=== PATIENT | female | born 1990 | race Caucasian/White ===

== ENCOUNTER → 2025-07-31 | Outpatient (CLI) | payer OTHER, SELFPAY ==
--- NOTE | 2025-07-31 14:45 | XR_ITS ---
Examination: MRI lumbar spine without contrast Date and time of exam: July 31, 2025, 1517 hours INDICATIONS: Twisting ankle injury 06/2025 with lateral ankle pain and instability Technique: Multiple MRI axial and sagittal sections lumbar spine. Sagittal T2-weighted images, TR 3500, TE 118 T1 weighted transverse sections, TR 688 T8.5, T2-weighted sagittal sections T1 weighted sagittal sections TR 621, TE 30 T2 axial sections, TR 4, 190, TE 84. Findings: Intact Achilles tendon Mild plantar fasciitis Moderate ankle effusion Mild sinus Tarsi syndrome Mild marrow edema in the distal fibular shaft coronal image 17 Negative for osteochondral talar defect Anterior posterior inferior tibiofibular ligaments intact Moderate sprain posterior talofibular ligament Prominent tendinitis flexor hallucis longus tendon Extensor tendons intact IMPRESSION: Marrow edema in the distal fibula, recommend correlation with plain films Moderate sprain posterior talofibular ligament Pronounced tendinitis flexor hallucis longus tendon
== END | disposition home or self-care (01) ==
LOC: SMRI 13:58
PROVIDERS: PCP Internal Medicine; Referring Provider Internal Medicine; Visit Provider Internal Medicine
DX: S93.491A Sprain of other ligament of right ankle, initial encounter (principal); X58.XXXA Exposure to other specified factors, initial encounter; M67.873 Other specified disorders of tendon, right ankle and foot
CPT/HCPCS: 73721

== ENCOUNTER → 2025-08-10 | Outpatient (CLI) | payer OTHER, SELFPAY ==
--- NOTE | 2025-08-10 08:55 | XR_ITS ---
Examination: Tibia-Fibula, right, 2 views Technique: Tibia-fibula AP lateral 2 views Date and time of exam: August 10, 2025, 0900 hours INDICATIONS: Running injury 2 months ago with persistent leg pain. FINDINGS: Mild osteopenia. No fracture or dislocation IMPRESSION: No fracture or dislocation
--- NOTE | 2025-08-10 08:55 | XR_ITS ---
EXAMINATION: Ankle, right 3 views. Technique: Ankle AP, oblique, lateral 3 views Date and time of exam: August 10, 2025, 0900 hours INDICATIONS: Running injury 2 months ago with ankle pain FINDINGS: Mild osteopenia Mild narrowing tibiotalar joint No fracture or dislocation IMPRESSION: No fracture or dislocation
== END | disposition home or self-care (01) ==
PROVIDERS: PCP Nurse Practitioner Family; Referring Provider Physician Assistant; Visit Provider Physician Assistant
DX: S89.91XA Unspecified injury of right lower leg, initial encounter (principal); S99.911A Unspecified injury of right ankle, initial encounter; X58.XXXA Exposure to other specified factors, initial encounter
CPT/HCPCS: 73590; 73610